=== PATIENT | female | born 1985 | race Caucasian/White ===

== ENCOUNTER 2016-08-16 21:48 | Emergency (ER) | payer SELFPAY ==
--- NOTE | ~2016-08-16 | ER ---
PATIENT'S NAME: PILO CORNELIUS [facility] AGE: 31 Y [address] ROOM: [place] [address] LOCATION: ED ADMIT DATE: 08/16/2016 ER/Outpatient Report DISCHARGE DATE: 08/16/2016 FAMILY PHYSICIAN: Marlena Rivas ATTENDING PHYSICIAN: Reagan Yin Time of Arrival: 2151 hours. Time of Evaluation: 2200 hours. CHIEF COMPLAINT: Right neck pain. HISTORY OF PRESENT ILLNESS: The patient states approximately 4 days ago while at work, she was getting a tote off a shelf when it fell and hit her in the posterior neck area on her right side. She has had pain ever since, but tonight, it seemed to get worse and cause spasming into the right shoulder and causing her to have a headache. She says she has been doing ice at home and has tried Tylenol and ibuprofen. Nothing seems to be helping. She states she does have a history of some previous back injuries with degenerative disc disease, spinal stenosis, and had herniated disk of the lower cervix and thoracic area in the past. Denies any vision changes. She has not had any trouble swallowing. Denies any chest pain or shortness of breath. She has not had any bowel or bladder changes. ALLERGIES: ON THE CHART AND REVIEWED BY ME. CURRENT MEDICATIONS: On the chart and reviewed by me. PAST MEDICAL HISTORY: Includes insulin-dependent diabetes, bipolar disease, hypertension, and anxiety disorder. PAST SURGERIES: Include hysterectomy. SOCIAL HISTORY: She does smoke half pack per day. Drinks alcohol on an occasional basis. Denies use of drugs. REVIEW OF SYSTEMS: All negative other than those mentioned in the HPI. PHYSICAL EXAMINATION: PATIENT'S NAME: PILO CORNELIUS [facility] AGE: 31 Y [address] ROOM: [place] [address] LOCATION: [facility] ADMIT DATE: 08/16/2016 ER/Outpatient Report DISCHARGE DATE: 08/16/2016 FAMILY PHYSICIAN: Marlena Rivas ATTENDING PHYSICIAN: Reagan Yin VITAL SIGNS: She weighed 78.4 kg; blood pressure was 137/83; pulse was 79, respirations 18, temperature of 97.6, tympanic; O2 saturation 99% on room air. GENERAL: She is awake, alert, and oriented x4. SKIN: Fl[place], warm, and dry. RESPIRATIONS: Even and nonlabored. HEENT: Pupils are equal and reactive to light. Extraocular movement is intact. She is tender to palpate along the right paraspinal area into the right shoulder. NECK: No lymphadenopathy of the neck is noted. LUNGS: Lung sounds are clear throughout. HEART: Regular rate and rhythm. She walks with a steady even gait. EMERGENCY DEPARTMENT COURSE: The patient was given [place] 5/325 x2 tablets p.o. and Valium 2 mg p.o. LABORATORY DATA AND X-RAYS: CT scan of the C-spine was completed. Radiologist reports no cervical abnormalities. IMPRESSION: Muscle spasms of the neck due to injury. PLAN: Home, rest. Heat or ice to that area. Prescription was written for [place] for pain. She does have Ativan at home to take as directed. She is to follow up with her primary provider if symptoms persist in the next 1-2 days. She verbalized understanding. AMBREEN CAMERON APRN FOR MD YAIR RUBIO/ish /[id number] d: 08/17/16 0504 t: 08/17/16 1823, OUTPATIENT REPORT
[~2016-08-16 21:48] MED LIST: ARIPIPRAZOLE15 MG PO; DIFLUCAN150 MG PO; JANUVIA 100 MG100 MG PO; JANUVIA25 MG PO; MELATONIN5 M2 PO; NOVA MAX BLOOD1 EACH SUB-Q; NOVOLOG100 UNIT/1 SUB-Q; PRINIVIL (ZESTR20 MG PO; PROVENTIL OR V6.7 GM; SEROQUEL100 MG PO; WELLBUTRIN XL150 M1 PO; XANAX0.25 MG PO
== END 2016-08-16 23:42 | disposition disaster alternative care site (69) ==
LOC: GMED 21:48
DX: M62.838 Other muscle spasm (principal); E11.9 Type 2 diabetes mellitus without complications; F31.9 Bipolar disorder, unspecified; I10 Essential (primary) hypertension; F17.210 Nicotine dependence, cigarettes, uncomplicated; Z90.710 Acquired absence of both cervix and uterus

== ENCOUNTER 2016-09-02 17:51 | Emergency (ER) | payer SELFPAY ==
--- NOTE | ~2016-09-02 | ER ---
PATIENT'S NAME: PILO CORNELIUS [facility] AGE: 31 Y [address] ROOM: [place] [address] LOCATION: [facility] ADMIT DATE: 09/02/2016 ER/Outpatient Report DISCHARGE DATE: 09/02/2016 FAMILY PHYSICIAN: Marlena Rivas ATTENDING PHYSICIAN: Emilie Acosta Time of Arrival: 1751 hours. Time of Evaluation: 1815 hours. CHIEF COMPLAINT: Back pain. HISTORY OF PRESENT ILLNESS: This is a 31-year-old female presents to the ER, who states that she injured her upper back about 2 weeks ago while at work. She states she was getting a heavy toad off a shelf when she injured herself. She was evaluated in the emergency room and she did have a CT scan done, everything looked okay. She was sent home with some [place]. She states she has not followed up with her primary care physician since that emergency room stay. She states that now that she is out of her [place], that her pain has not really improved any. She states the pain does radiate across the top of her back and then down her back as well. She has had no fever or chills. She has been using heat, ice, a TENS unit, and also some Tylenol. ALLERGIES: LITHIUM, GEODON, DEPAKOTE, ZITHROMAX, BACTRIM, METFORMIN, GLYBURIDE, AND RISPERDAL. MEDICATIONS: Please see medication list in nurse's notes. PAST MEDICAL HISTORY: Chronic low back pain, insulin-dependent diabetes, hypertension. She has sciatic back pain that radiates down her right leg that is chronic. She has had a hysterectomy. SOCIAL HISTORY: She smokes half pack a day. Drinks alcohol occasionally. REVIEW OF SYSTEMS: A 10-point review of systems was completed and was negative with the exception of those discussed in the HPI. PHYSICAL EXAMINATION: VITAL SIGNS: Height 5 feet 2 inches stated, weight 79.1 kg taken, blood PATIENT'S NAME: PILO CORNELIUS [facility] AGE: 31 Y [address] ROOM: [place] [address] LOCATION: ED ADMIT DATE: 09/02/2016 ER/Outpatient Report DISCHARGE DATE: 09/02/2016 FAMILY PHYSICIAN: Marlena Rivas ATTENDING PHYSICIAN: Emilie Acosta pressure is 151/89, pulse 76, respirations 16, temperature 98.8 degrees tympanically, saturations 98% on room air, Lorin Coma Score is 15. GENERAL: Alert, well-developed female, in no acute distress. HEENT: Head: Normocephalic. Eyes: Pupils are equal and reactive to light. She does display moist mucous membranes. LUNGS: Clear to auscultation bilaterally. No wheezes or crackles. Normal respiratory effort. HEART: Regular rate and rhythm. No lifts, thrills, or murmurs. MUSCULOSKELETAL: She does have muscular spasm noted in the right trapezius muscle. She also has some more mild tenderness in her left trapezius muscle as well. I do palpate her entire back. She has no bony tenderness, but she does have tenderness on the paraspinous muscle in the thoracic spine as well. NEURO: Cranial nerves 2 through 12 grossly intact. Gait is steady without assistance. LABORATORY DATA AND X-RAYS: X-rays, none were done. CT scan from previous ER visit was reviewed. IMPRESSION: 1. Upper back pain from recent work-related injury. 2. Chronic low back pain. ASSESSMENT AND PLAN: The patient became upset with me during examination because I was questioning her about her origin of her back pain. I did offer her a prescription for a muscle relaxant at home and she is agreeable with this. I will send her home with a prescription for Flexeril and Ultram to use as directed. She needs to place heat to the area, massage the spasmed muscles, and I advised that she may need to see Physical Therapy if she does not improve. She should follow up with her primary care physician in the next 2 days. The patient understands and agrees with care. KARLENE CHENG PA-C FOR MD DAVID BRAY/ish /[id number] d: t: 09/11/16 1311, OUTPATIENT REPORT
== END 2016-09-02 18:55 | disposition disaster alternative care site (69) ==
LOC: GMED 17:51
DX: M54.6 Pain in thoracic spine (principal); M54.5 Low back pain; E11.9 Type 2 diabetes mellitus without complications; I10 Essential (primary) hypertension; F17.210 Nicotine dependence, cigarettes, uncomplicated; Z88.1 Allergy status to other antibiotic agents; Z88.8 Allergy status to other drugs, medicaments and biological substances

== ENCOUNTER 2016-10-06 19:39 | Emergency (ER) | payer SELFPAY ==
--- NOTE | ~2016-10-06 | ER ---
PATIENT'S NAME: PILO CORNELIUS [facility] AGE: 31 Y [address] ROOM: [place] [address] LOCATION: ED ADMIT DATE: 10/06/2016 ER/Outpatient Report DISCHARGE DATE: 10/06/2016 FAMILY PHYSICIAN: Marlena Rivas ATTENDING PHYSICIAN: Reagan Yin Time of Arrival: 1939 hours. Time of Evaluation: 2030 hours. The patient was not seen in a timely manner due to busy ER. CHIEF COMPLAINT: Sore throat. HISTORY OF PRESENT ILLNESS: This is a 31-year-old female, who presents to the ER with a sore throat for the past 2 days and then she has had nasal congestion for the past 10 days. She states she has been running some low-grade fevers at home. She states she has had a hoarse voice and it hurts her throat to swallow. 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 She states that she has not seen her primary care physician for this illness. ALLERGIES: PLEASE SEE MEDICATION LIST NURSE'S NOTES. MEDICATIONS: Please see medication list nurse's notes. PAST MEDICAL HISTORY: 1. Insulin-dependent diabetes. 2. Hypertension. 3. Anxiety. 4. Mood disorder. PAST SURGICAL HISTORY: She has had a tubal ligation and partial hysterectomy. SOCIAL HISTORY: She smokes one pack a day for the last year. She does drink alcohol 1 or 2 times a month. REVIEW OF SYSTEMS: A 10-point review of systems was completed and was negative with the exception of those discussed in the HPI. PATIENT'S NAME: PILO CORNELIUS [facility] AGE: 31 Y [address] ROOM: [place] [address] LOCATION: ED ADMIT DATE: 10/06/2016 ER/Outpatient Report DISCHARGE DATE: 10/06/2016 FAMILY PHYSICIAN: Marlena Rivas ATTENDING PHYSICIAN: Reagan Yin PHYSICAL EXAMINATION: VITAL SIGNS: Height 5 feet and 2 inches stated, weight 80.2 kg taken, blood pressure is 106/51, pulse 90, respirations 16, temperature 97.6 degrees tympanically, and saturations 99% on room air. Lorin Coma Score is 15. GENERAL: Alert, calm, well-developed, 31-year-old, in no acute distress. HEENT: Head: Normocephalic. Eyes: Pupils are equal and reactive to light. Ears: TMs display good light reflexes bilaterally. Auditory canals clear. Nose: Turbinates pink with purulent drainage. Throat is erythematic. No exudates were seen. She does display moist mucous membranes. LUNGS: Clear to auscultation bilaterally. No wheezes or crackles. Normal respiratory effort. HEART: Regular rate rhythm. No lifts, thrills, or murmurs. EXTREMITIES: No clubbing, cyanosis, or edema. Full range of motion of all limbs. LABORATORY DATA AND X-RAYS: None were done. IMPRESSION: 1. Sinusitis. 2. Pharyngitis. ASSESSMENT AND PLAN: We will dismiss the patient home with a prescription for amoxicillin to use as directed. I also provided her with a work note. I advised her to continue to push fluids. She may try doing a Neti Pot or some Mucinex [id number]. She needs to follow up with her primary care physician if she does not improve. The patient understands and agrees with care. KARLENE CHENG PA-C FOR MD DAVID RUBIO/ish /[id number] d: t: 10/09/16 1322, OUTPATIENT REPORT
== END 2016-10-06 20:52 | disposition disaster alternative care site (69) ==
LOC: GMED 19:39
DX: J32.9 Chronic sinusitis, unspecified (principal); J02.9 Acute pharyngitis, unspecified; I10 Essential (primary) hypertension; E11.9 Type 2 diabetes mellitus without complications; F41.9 Anxiety disorder, unspecified; F17.210 Nicotine dependence, cigarettes, uncomplicated; Z88.1 Allergy status to other antibiotic agents; Z79.899 Other long term (current) drug therapy; Z79.4 Long term (current) use of insulin